=== PATIENT | female | born 1970 | race American Indian/Alaskan Native ===

== ENCOUNTER 2016-09-25 13:15 | Emergency (ER) | payer SELFPAY ==
[2016-09-25 13:46] VITALS: BP 143/85
--- NOTE | 2016-09-25 14:20 | Emergency Department Report ---
Entered by PAU FLANAGAN, acting as scribe for GENARO SPIVEY PA. Chief Complaint: Chest Pain Stated Complaint: CHEST PAIN - HPI History of Present Illness: 46 y/o female presents c/o pressure-like chest pain that started 3 days ago. Associated Sx include right extremity numbness but denies fever, N/V or abd pain. Pt notes taking tums with no relief and has never had an episode like this before. - ROS Review of Systems: as noted in HPI. - Exam Vital Signs: Vital Signs 09/25/16 13:41 Temperature 98.6 F Pulse Rate 67 Respiratory 20 Rate Blood Pressure 143/85 O2 Sat by Pulse 99 Oximetry Physical Exam: General: 46-year-old female in no acute distress. Well-developed, well- nourished. CV: Regular rate and rhythm. No murmurs rubs or gallops. Lungs: Clear to auscultation bilaterally. Abdomen: No tenderness to palpation. No guarding or rebound tenderness. Normal bowel sounds. Mini Neuro: Alert and oriented 3. MSE screening note: Focused history and physical exam performed. Due to findings the following was ordered: ED Disposition for MSE Condition: Stable This documentation as recorded by the scribe,PAU FLANAGAN,accurately reflects the service I personally performed and the decisions made by ,GENARO SPIVEY PA.
[2016-09-25 15:52] LABS: Anion Gap 18 mmol/L; Blood Urea Nitrogen 11 mg/dL (7-17); Calcium 8.9 mg/dL (8.4-10.2); Carbon Dioxide 21 mmol/L (22-30); Chloride 102.8 mmol/L (98-107); Glucose 84 mg/dL (65-100); Potassium 4.5 mmol/L (3.6-5.0); Sodium 137 mmol/L (137-145)
[2016-09-25 15:53] LABS: Basophils % (Auto) 0.7 % (0.0-1.8); Eosinophils % (Auto) 6.8 % (0.0-4.3); Mean Corpuscular HGB Conc 31 % (30-34); Platelet Count 208 K/mm3 (140-440); Red Blood Count 5.79 M/mm3 (3.65-5.03); Red Cell Distribution Width 17.2 % (13.2-15.2); White Blood Count 5.7 K/mm3 (4.5-11.0)
[2016-09-25 15:57] LABS: Hematocrit 40.4 % (30.3-42.9); Hemoglobin 12.4 gm/dl (10.1-14.3); Mean Corpuscular Hemoglobin 21 pg (28-32); Mean Corpuscular Volume 70 fl (79-97)
--- NOTE | 2016-09-26 18:59 | ED Elopement Review ---
ED Pt Elopement review - Results review Lab results: Laboratory Tests 09/25/16 09/25/16 09/25/16 15:13 15:13 16:13 WBC 5.7 RBC 5.79 H Hgb 12.4 Hct 40.4 MCV 70 L MCH 21 L MCHC 31 RDW 17.2 H Plt Count 208 Lymph % (Auto) 37.5 H Cochran % (Auto) 9.7 H Eos % (Auto) 6.8 H Baso % (Auto) 0.7 Lymph # 2.1 Cochran # 0.6 Eos # 0.4 Baso # 0.0 Seg Neutrophils % 45.3 Seg Neutrophils # 2.6 Sodium 137 Potassium 4.5 Chloride 102.8 Carbon Dioxide 21 L Anion Gap 18 BUN 11 Creatinine 0.5 L Estimated GFR > 60 BUN/Creatinine Ratio 22.00 Glucose 84 Calcium 8.9 Troponin T < 0.010 < 0.010 - Call Back decision Pt Call Back Decision: Call pt to return to ED NAOMI (chest pressure will likely require inpatient evaluation)
== END 2016-09-25 20:00 | disposition left against medical advice (07) ==
LOC: ED 13:15
DX: R07.89 Other chest pain (principal); Z53.21 Procedure and treatment not carried out due to patient leaving prior to being seen by health care provider
CPT/HCPCS: 36415; 80048; 84484; 85025; 93005; 93010

== ENCOUNTER 2017-01-14 15:02 | Emergency (ER) | payer SELFPAY ==
[2017-01-14 15:16] VITALS: BP 143/87
[2017-01-14] MEDS ORDERED: TORADOL IM ONE (16:04)
--- NOTE | 2017-01-14 16:27 | Emergency Department Report ---
Entered by BRIA RYDER, acting as scribe for DADA ALONSO PA. ED Lower Extremity HPI - General Chief Complaint: Extremity Injury, Lower Stated Complaint: CHEST PAINS Time Seen by Provider: 01/14/17 15:35 Source: patient Mode of arrival: Ambulatory Limitations: No Limitations - History of Present Illness Initial Comments: 46 y/o female with a PMHx of obesity presents to the ED c/o left knee pain that began 1 day ago. Rates pain a 5/10 in severity, which she describes as pressure in quality. Aggravated with movement and weight bearing, and alleviated with nothing. Patient state she believes she injured her left knee at work, but she is unknown how she injured her knee. Notes she noticed swelling at onset of symptoms. Associated left knee swelling, but she denies any fall injury, fever, chills, numbness and tingling. Applied bandage and took Aleve with some relief. NKDA. HUGHES Complaint: knee injury (left swelling and pain) Onset/Timin -: days(s) Injury: Knee: Left Type of Injury: unknown Place: work Severity: moderate Severity scale (0 -10): 5 Improves With: nothing Worsens With: weight bearing, movement Associated Symptoms: swelling, ambulatory. denies: snap/pop sensation, numbness , tingling Treatments Prior to Arrival: NSAIDS (Aleve) - Related Data Previous Rx's Medication Instructions Recorded Last Taken Type traMADol [Ultram] 50 mg PO Q6HR PRN #12 tablet 01/14/17 Unknown Rx Allergies Allergy/AdvReac Type Severity Reaction Status Date / Time No Known Allergies Allergy Verified 01/14/17 15:11 ED Review of Systems Comment: All other systems reviewed and negative Constitutional: denies: chills, diaphoresis, fever, weakness Eyes: denies: eye pain, eye discharge, vision change ENT: denies: ear pain, throat pain Respiratory: denies: cough, orthopnea, shortness of breath, SOB with exertion, SOB at rest, stridor, wheezing Cardiovascular: denies: chest pain, palpitations, dyspnea on exertion, orthopnea , edema, syncope, paroxysmal nocturnal dyspnea Endocrine: no symptoms reported Gastrointestinal: denies: abdominal pain, nausea, vomiting, diarrhea Musculoskeletal: joint swelling, arthralgia (left knee pain). denies: back pain , myalgia Skin: denies: rash, lesions Neurological: denies: headache, weakness, numbness, paresthesias Hematological/Lymphatic: denies: easy bleeding, easy bruising ED Past Medical Hx - Past Medical History Previous Medical History?: Yes Additional medical history: OBESITY - Surgical History Past Surgical History?: Yes Additional Surgical History: - Family History Family history: hypertension - Social History Smoking Status: Current Every Day Smoker Substance Use Type: Alcohol Other Social History: Single - Medications Home Medications: Home Medications Medication Instructions Recorded Confirmed Last Taken Type traMADol [Ultram] 50 mg PO Q6HR PRN #12 tablet 01/14/17 Unknown Rx ED Physical Exam - General Limitations: No Limitations General appearance: alert, in no apparent distress - Head Head exam: Present: atraumatic, normocephalic, normal inspection - Eye Eye exam: Present: normal appearance, PERRL, EOMI Pupils: Present: normal accommodation - ENT ENT exam: Present: normal exam, normal orophraynx, mucous membranes moist - Neck Neck exam: Present: normal inspection, full ROM. Absent: tenderness, meningismus, lymphadenopathy - Respiratory Respiratory exam: Present: normal lung sounds bilaterally. Absent: respiratory distress, wheezes, rales, rhonchi, stridor, chest wall tenderness, accessory muscle use, decreased breath sounds - Cardiovascular Cardiovascular Exam: Present: regular rate, normal rhythm, normal heart sounds. Absent: systolic murmur, diastolic murmur - GI/Abdominal GI/Abdominal exam: Present: soft, normal bowel sounds. Absent: distended - Extremities Exam Extremities exam: Present: normal inspection, full ROM (full, but painful left knee flexion and extension), normal capillary refill. Absent: tenderness, pedal edema, joint swelling, calf tenderness - Expanded Lower Extremity Exam Left Hip exam: Present: normal inspection, full ROM, pelvic stability. Absent: tenderness, swelling, abrasion, laceration, ecchymosis, deformity, crepidus, dislocation, erythema, external rotation, internal rotation, shortening Upper Leg exam: Present: normal inspection, full ROM. Absent: tenderness, swelling, abrasion, laceration, ecchymosis, deformity, crepidus, dislocation, erythema Knee exam: Present: full ROM (full, but painful left knee flexion and extension) , full knee extension. Absent: normal inspection, tenderness, swelling, abrasion, laceration, ecchymosis, deformity, crepidus, dislocation, erythema, effusion, pain w/ pronation/supination, posterior draw sign, pain/laxity with valgus, pain/laxity with varus Lower Leg exam: Present: normal inspection, full ROM. Absent: tenderness, swelling, abrasion, laceration, ecchymosis, deformity, crepidus, dislocation, erythema, palpable cord, Josephine's sign Ankle exam: Present: normal inspection, full ROM Foot/Toe exam: Present: normal inspection, full ROM. Absent: tenderness, swelling, abrasion, laceration, ecchymosis, deformity, crepidus, dislocation, erythema, amputation, puncture wound, foreign body, calcaneal tenderness, tenderness at base of 5th metatarsal, nail avulsion, subungual hematoma Neuro vascular tendon exam: Present: no vascular compromise. Absent: pulse deficit, abnormal cap refill, motor deficit, sensory deficit, tendon deficit, pallor, abnormal 2-point discrimination, decreased fine/light touch, foot drop, peroneal nerve deficit, significant pain with passive ROM of distal joint Gait: Positive: observed and normal - Back Exam Back exam: Present: normal inspection, full ROM. Absent: tenderness, CVA tenderness (R), CVA tenderness (L), muscle spasm, paraspinal tenderness, vertebral tenderness, rash noted - Neurological Exam Neurological exam: Present: alert, oriented X3, normal gait, reflexes normal. Absent: motor sensory deficit - Psychiatric Psychiatric exam: Present: normal affect, normal mood - Skin Skin exam: Present: warm, dry, intact, normal color. Absent: rash ED Course Vital Signs 01/14/17 15:12 Temperature 99.2 F Pulse Rate 78 Respiratory 17 Rate Blood Pressure 143/87 O2 Sat by Pulse 99 Oximetry - Reevaluation(s) Reevaluation #1: 01/14/17 16:15 Toradol 60 mg im x 1 dose ED Lower Extremity MDM - Medical Decision Making ED Course Patient here reports that she did have an left knee pain and she thinks she injured her knee at work but cannot tell me source of injury. Patient knee exam is normal without any abrasion or laceration. She does not have any tenderness to palpation. She has had that it hurts when she moves her knee but she can walk okay. She was given Toradol 60 mg IM in the emergency room for left knee pain. DX:Arthralgia left knee.I Discussed with her that she will need to follow up with orthopedic doctor for further evaluation and treatment. She was understanding of discharge diagnosis and treatment plan discharge home from emergency room and prescription for Ultram. ED Disposition Clinical Impression: Arthralgia of left knee Disposition: DC-01 TO HOME OR SELFCARE Is pt being admited?: No Does the pt Need Aspirin: No Condition: Stable Instructions: Knee Exercises (GEN), Knee Pain (ED), RICE Therapy (ED) Additional Instructions: Take medication as prescribed . please do not drive or operate heavy machinery while taking these medications. Referred to discharge instruction in [facility] therapy. These follow-up with orthopedic doctor as instructed. Prescriptions: traMADol [Ultram] 50 mg PO Q6HR PRN #12 tablet PRN Reason: Pain Referrals: SHARON ARREGUIN MD [Staff Physician] - 3-5 Days Forms: Work/School Release Form(ED) This documentation as recorded by the BRITNI ortiz JASMINE,accurately reflects the service I personally performed and the decisions made by me,DADA ALONSO PA.
== END 2017-01-14 16:30 | disposition home or self-care (01) ==
LOC: ED 15:02
DX: M25.562 Pain in left knee (principal); F17.200 Nicotine dependence, unspecified, uncomplicated
CPT/HCPCS: 99282; J1885